=== PATIENT | female | born 1995 | race Caucasian/White ===

== ENCOUNTER 2017-06-07 16:14 | Emergency (ER) | payer OTHER ==
[~2017-06-07] VITALS: Ht 157.4 cm; Wt 45.4 kg
[~2017-06-07 16:14] MED LIST: MOTRIN800 MG PO
[2017-06-07 16:51] LABS: BILIRUBIN NEGATIVE (NEGATIVE); BLOOD 1+ (NEGATIVE); CLARITY SL CLOUDY (CLEAR); COLOR YELLOW (YELLOW); GLUCOSE NEGATIVE (NEGATIVE); KETONE 2+ (NEGATIVE); LEUKO ESTERASE NEGATIVE (NEGATIVE); NITRITE NEGATIVE (NEGATIVE); PH 5.5 (5.0-9.0); SPECIFIC GRAVITY 1.025 (1.005-1.030); UROBILINOGEN 0.2 E.U./dl (0.2-1.0)
[2017-06-07 16:57] LABS: BACTERIA 2+; EPITHELIAL CELLS 31-40
[2017-06-07 16:58] LABS: BASO % 0.1 % (0.0-1.0); EOS % 0.1 % (1.0-4.0); HEMATOCRIT 43.5 % (37.0-47.0); HEMOGLOBIN 13.8 g/dl (12.0-16.0); LYMPH # 0.6 10*3/uL (1.3-4.4); LYMPH % 7.7 % (27.0-41.0); MEAN CELL VOLUME 83.7 fl (81.0-99.0); MEAN CORPUSCULAR HGB 26.5 pg (27.0-31.0); MEAN CORPUSCULAR HGB CONC 31.7 g/dl (33.0-37.0); MEAN PLATELET VOLUME 11.6 fl (9.6-12.3); MONO # 0.4 10*3/uL (0.1-1.0); MONO % 4.8 % (3.0-9.0); NEUT # 6.3 10*3/uL (2.3-7.9); PLATELET COUNT AUTOMATED 179 10*3/uL (130-400); WHITE BLOOD COUNT 7.3 10*3/uL (4.8-10.8)
[2017-06-07 17:05] LABS: URINE AMPHETAMINES < 1000 (1000ng/ml); URINE BARBITURATES < 200 (200ng/ml); URINE BENZODIAZEPINES < 200 (200ng/ml); URINE CANNABINOIDS (THC) < 50 (50ng/ml); URINE COCAINE < 300 (300ng/ml); URINE METHADONE < 300 (300ng/ml); URINE OPIATES < 300 (300ng/ml); URINE PHENCYCLIDINE < 25 (25ng/ml)
[2017-06-07 17:12] LABS: ALBUMIN 3.7 gm/dl (3.1-4.5); ALKALINE PHOSPHATASE 106 U/L (45-117); BUN 16 mg/dl (7-24); CHLORIDE 104 mmol/L (98-107); CREATININE 0.77 mg/dL (0.55-1.02); LIPASE 163 U/L (73-393); POTASSIUM 3.8 mmol/L (3.5-5.1); SGOT/AST 11 IU/L (3-35); SGPT/ALT 17 U/L (12-78); SODIUM 137 mmol/L (136-145); TOTAL PROTEIN 8.1 gm/dL (6.4-8.2)
[2017-06-07] MEDS ORDERED: ZOFRAN4 MG PO (17:29)
== END 2017-06-07 17:55 | disposition home or self-care (01) ==
LOC: ED 16:14
PROVIDERS: Nurse Practitioner Family
DX: K52.9 Noninfective gastroenteritis and colitis, unspecified (principal); Z88.6 Allergy status to analgesic agent; Z88.5 Allergy status to narcotic agent

== ENCOUNTER 2019-01-14 09:15 | Emergency (ER) | payer OTHER ==
[~2019-01-14] VITALS: Ht 157.4 cm; Wt 52.2 kg
[~2019-01-14 09:15] MED LIST changes: +ZOFRAN4 MG PO
[2019-01-14] MEDS ORDERED: AMOXICILLIN500 M2 PO (10:31)
[2019-02-27] MEDS ORDERED: AMOXICILLIN500 M2 PO (09:01)
[2019-02-27] MEDS ORDERED: DIFLUCAN150 MG PO (09:02)
== END 2019-01-14 10:39 | disposition home or self-care (01) ==
LOC: ED 09:15
DX: J02.9 Acute pharyngitis, unspecified (principal); Z88.6 Allergy status to analgesic agent; Z88.5 Allergy status to narcotic agent

== ENCOUNTER 2021-07-14 02:45 | Emergency (ER) | payer OTHER ==
[~2021-07-14] VITALS: Ht 157.4 cm; Wt 52.2 kg
[~2021-07-14 02:45] MED LIST changes: +AMOXICILLIN500 M2 PO; +DIFLUCAN150 MG PO
[2021-07-14] MEDS ORDERED: CIPRO500 MG PO (06:46)
== END 2021-07-14 06:51 | disposition home or self-care (01) ==
LOC: ED 02:45
DX: S40.012A Contusion of left shoulder, initial encounter (principal); S40.011A Contusion of right shoulder, initial encounter; S60.221A Contusion of right hand, initial encounter; S40.021A Contusion of right upper arm, initial encounter; S00.83XA Contusion of other part of head, initial encounter; Z88.8 Allergy status to other drugs, medicaments and biological substances; Y08.89XA Assault by other specified means, initial encounter; Y93.89 Activity, other specified; Y92.89 Other specified places as the place of occurrence of the external cause; Y99.8 Other external cause status

== ENCOUNTER 2022-09-03 20:48 | Emergency (ER) | payer OTHER ==
[~2022-09-03] VITALS: Ht 157.4 cm; Wt 49.9 kg
[~2022-09-03 20:48] MED LIST changes: +CIPRO500 MG PO; +MACROBID100 M1 PO
[2022-09-03 23:08] LABS: BASO % 0.6 % (0.0-1.0); EOS # 0.1 10*3/uL (0.0-0.4); EOS % 1.4 % (1.0-4.0); HEMATOCRIT 36.9 % (37.0-47.0); LYMPH # 2.9 10*3/uL (1.3-4.4); LYMPH % 41.1 % (27.0-41.0); MEAN CELL VOLUME 76.7 fl (81.0-99.0); MEAN CORPUSCULAR HGB 22.5 pg (27.0-31.0); MEAN CORPUSCULAR HGB CONC 29.3 g/dl (33.0-37.0); MEAN PLATELET VOLUME 11.4 fl (9.6-12.3); MONO # 0.5 10*3/uL (0.1-1.0); MONO % 7.5 % (3.0-9.0); NEUT # 3.5 10*3/uL (2.3-7.9); NEUT % 49.3 % (47.0-73.0); PLATELET COUNT AUTOMATED 206 10*3/uL (130-400); RED BLOOD COUNT 4.81 10*6/uL (4.10-5.10); RED CELL DISTRI WIDTH 22.4 % (0-14.5)
[2022-09-03 23:22] LABS: ALKALINE PHOSPHATASE 94 U/L (46-116); BUN 14 mg/dl (9-23); CHLORIDE 104 mmol/L (98-107); CREATININE 0.66 mg/dL (0.55-1.02); LIPASE 42 U/L (12-53); POTASSIUM 3.7 mmol/L (3.4-5.1); SODIUM 137 mmol/L (136-145)
[2022-09-03 23:23] LABS: TOTAL PROTEIN 6.8 gm/dL (6.0-8.0)
[2022-09-03 23:27] LABS: BETA-HCG, QUANT < 0.0 mIU/mL (0-10); SGPT/ALT < 7 U/L (10-49)
== END 2022-09-04 00:25 | disposition home or self-care (01) ==
LOC: ED 20:48
PROVIDERS: Physician Assistant
DX: O46.91 Antepartum hemorrhage, unspecified, first trimester (principal); Z3A.01 Less than 8 weeks gestation of pregnancy; Z88.8 Allergy status to other drugs, medicaments and biological substances

== ENCOUNTER → 2022-09-04 | Outpatient (CLI) | payer OTHER | END | disposition home or self-care (01) | LOC: US 13:24 | PROVIDERS: ATTEND Physician Assistant | DX: N93.9 Abnormal uterine and vaginal bleeding, unspecified (principal); R10.2 Pelvic and perineal pain ==

== ENCOUNTER 2024-06-22 20:16 | Observation (INO) | payer OTHER ==
[~2024-06-22] VITALS: Ht 157.4 cm; Wt 56.7 kg
[2024-06-22 20:30] VITALS: BP 106/87
[2024-06-22 21:09] LABS: BASO % 0.4 % (0.0-1.0); EOS # 0.1 10*3/uL (0.0-0.4); EOS % 0.7 % (1.0-4.0); HEMATOCRIT 40.3 % (37.0-47.0); LYMPH # 2.9 10*3/uL (1.3-4.4); LYMPH % 34.7 % (27.0-41.0); MEAN CORPUSCULAR HGB 29.1 pg (27.0-31.0); MEAN CORPUSCULAR HGB CONC 32.8 g/dl (33.0-37.0); MEAN PLATELET VOLUME 11.6 fl (9.6-12.3); MONO # 0.4 10*3/uL (0.1-1.0); MONO % 5.3 % (3.0-9.0); NEUT # 4.9 10*3/uL (2.3-7.9); NEUT % 58.7 % (47.0-73.0); PLATELET COUNT AUTOMATED 172 10*3/uL (130-400); RED BLOOD COUNT 4.53 10*6/uL (4.10-5.10); RED CELL DISTRI WIDTH 12.6 % (0-14.5); WHITE BLOOD COUNT 8.3 10*3/uL (4.8-10.8)
[2024-06-22 21:20] LABS: ACT PARTIAL THROMBO TIME 22.5 SECONDS (20.0-32.1)
[2024-06-22 21:36] LABS: ALKALINE PHOSPHATASE 104 U/L (46-116); BUN 10 mg/dl (9-23); CHLORIDE 107 mmol/L (98-107); POTASSIUM 3.2 mmol/L (3.4-5.1); SGPT/ALT 12 U/L (5-49); TOTAL PROTEIN 6.9 gm/dL (6.0-8.0)
[2024-06-22] MEDS ORDERED: POTASSIUM CHLORIDE 20 MEQ TAB PO ONE (22:00)
[2024-06-22] MEDS ORDERED: SODIUM CHLORIDE 0.9% 1,000 ML IV ONE (22:00)
[2024-06-22] MEDS ORDERED: Ondansetron Hydrochloride 4 MG/2 ML VIAL IV PRN (23:35)
[2024-06-22] MEDS ORDERED: BISACODYL 5 MG TAB PO PRN (23:35)
[2024-06-22] MEDS ORDERED: Magnesium Hydroxide 30 ML UDC PO PRN (23:35)
[2024-06-22] MEDS ORDERED: ACETAMINOPHEN 325 MG TAB PO PRN (23:35)
[2024-06-22] MEDS ORDERED: BISACODYL 10 MG SUPP R PRN (23:35)
[2024-06-23] MEDS ORDERED: Pantoprazole Sodium 40 MG TAB PO SCH (06:00)
[2024-06-23 06:24] LABS: BASO % 0.3 % (0.0-1.0); EOS % 0.1 % (1.0-4.0); HEMATOCRIT 38.3 % (37.0-47.0); LYMPH # 1.9 10*3/uL (1.3-4.4); LYMPH % 25.6 % (27.0-41.0); MEAN CELL VOLUME 90.8 fl (81.0-99.0); MEAN CORPUSCULAR HGB 28.9 pg (27.0-31.0); MEAN CORPUSCULAR HGB CONC 31.9 g/dl (33.0-37.0); MEAN PLATELET VOLUME 11.7 fl (9.6-12.3); MONO # 0.5 10*3/uL (0.1-1.0); MONO % 6.4 % (3.0-9.0); NEUT % 67.3 % (47.0-73.0); PLATELET COUNT AUTOMATED 164 10*3/uL (130-400); RED BLOOD COUNT 4.22 10*6/uL (4.10-5.10); RED CELL DISTRI WIDTH 12.9 % (0-14.5); WHITE BLOOD COUNT 7.5 10*3/uL (4.8-10.8)
[2024-06-23 06:53] LABS: BUN 9 mg/dl (9-23); CHLORIDE 112 mmol/L (98-107); CHOLESTEROL 104 mg/dL (<200); FREE T4 0.93 ng/dl (0.89-1.76); LDL CHOLESTEROL 58 mg/dL (9-159); POTASSIUM 4.1 mmol/L (3.4-5.1); TRIGLYCERIDES 53 mg/dl (<150)
[2024-06-23 08:00] VITALS: BP 158/101; BP 94/47
[2024-06-23 09:07] LABS: VITAMIN D, 25-HYDROXY 34.2 ng/mL (30-100)
[2024-06-23 09:36] VITALS: BP 185/113; BP 94/47
[2024-06-23] MEDS ORDERED: APIXABAN 5 MG TAB PO SCH (10:00)
[2024-06-23] MEDS ORDERED: GADOTERATE MEGLUMINE 7.5 MMOL/15 ML VIAL IV ONE (10:01)
[2024-06-23] MEDS ORDERED: ELIQUIS5 M1 PO (12:32)
== END 2024-06-23 15:42 | disposition home or self-care (01) ==
LOC: ED 20:16 → EDHOLD 22:34
PROVIDERS: Nurse Practitioner; Student in an Organized Health Care Education/Training Program; ADMIT Internal Medicine; ATTEND Internal Medicine
DX: G45.9 Transient cerebral ischemic attack, unspecified (principal); F12.922 Cannabis use, unspecified with intoxication with perceptual disturbance; R00.0 Tachycardia, unspecified; R73.9 Hyperglycemia, unspecified; E87.20 Acidosis, unspecified; G93.89 Other specified disorders of brain; I82.402 Acute embolism and thrombosis of unspecified deep veins of left lower extremity; F12.10 Cannabis abuse, uncomplicated; F17.210 Nicotine dependence, cigarettes, uncomplicated; E66.9 Obesity, unspecified; Z68.22 Body mass index [BMI] 22.0-22.9, adult; Z79.899 Other long term (current) drug therapy